=== PATIENT | male | born 1980 | race Caucasian/White ===

== ENCOUNTER 2021-12-10 00:55 | Emergency (ER) | payer MEDICAID, OTHER ==
[~2021-12-10] VITALS: Ht 162.6 cm; Wt 118.8 kg
[2021-12-10 01:01] VITALS: BP 206/127
--- NOTE | 2021-12-10 01:08 | NUR ---
Patient ambulated to bed 11.
[2021-12-10 02:14] LABS: BARBITURATE, URINE NEGATIVE ng/ml (NEG <=200); BENZODIAZEPINE, URINE NEGATIVE ng/mL (NEG <=200); CANNABINOID, URINE NEGATIVE ng/mL (NEG <=50); COCAINE, URINE NEGATIVE ng/mL (NEG <=300); OPIATE, URINE NEGATIVE ng/mL (NEG <=2000); PHENCYCLIDINE SCREEN,URINE NEGATIVE ng/mL (NEG <=25)
--- NOTE | 2021-12-10 02:16 | NUR ---
ALON PALMA AT [facility] FOR ASSESSMENT
[2021-12-10] MEDS ORDERED: diazePAM 5 MG TAB PO ONE (02:20)
[2021-12-10 02:34] LABS: BASOPHILS # (AUTO) 0.1 K/uL (0.00-0.22); BASOPHILS % (AUTO) 0.5 % (0.0-2.0); EOSINOPHILS # (AUTO) 0.2 K/uL (0-0.4); EOSINOPHILS % (AUTO) 1.5 % (0.0-4.0); HEMATOCRIT 50.2 % (36-52); LYMPHOCYTES # (AUTO) 3.2 K/uL (2.0-11.5); MEAN CORPUSCULAR HEMOGLOBIN 29 pg (27-31); MEAN CORPUSCULAR HGB CONC 34 g/dL (33-37); MEAN CORPUSCULAR VOLUME 85.8 fL (80-94); MONOCYTES # (AUTO) 0.6 K/uL (0.8-1.0); MONOCYTES % (AUTO) 5.5 % (1.7-9.3); NEUTROPHILS % (AUTO) 63.5 % (42.2-75.2); PLATELET COUNT (AUTO) 354 K/uL (140-450); RED BLOOD CELL COUNT(AUTO) 5.85 MIL/uL (4.20-6.10); RED CELL DISTRIBUTION WIDTH 13.4 % (11.6-13.7)
--- NOTE | 2021-12-10 02:35 | NUR ---
PT TAKING TO CT VIA WHEELCHAIR
[2021-12-10 03:02] LABS: ANION GAP 11.4 (8-16); CARBON DIOXIDE 29.8 mmol/L (21-32); CREATININE 1.4 mg/dL (0.6-1.3); POTASSIUM 3.2 mmol/L (3.5-5.1)
[2021-12-10 04:50] VITALS: BP 180/103
--- NOTE | 2021-12-10 04:50 | NUR ---
Patient discharged with v/s stable. Written and verbal after care instructions given and explained. Patient verbalized understanding. Ambulatory with steady gait. All questions addressed prior to discharge. Advised to follow up with PMD.
== END 2021-12-10 04:50 | disposition home or self-care (01) ==
LOC: MED 00:55
DX: R20.2 Paresthesia of skin (principal); F15.10 Other stimulant abuse, uncomplicated; Z71.6 Tobacco abuse counseling
CPT/HCPCS: 36415; 70450; 80048; 80305; 85025; 93005; 99285

== ENCOUNTER 2023-02-07 22:56 | Emergency (ER) | payer MEDICAID ==
--- NOTE | 2023-02-07 23:30 | NUR ---
PATIENT CALL TO TRIAGE , NO RESPONSE PATIENT LEFT WITHOUT BEING SEEN BY DR. SMITH. NO FURTHER CARE PROVIDED FOR PATIENT.
--- NOTE | 2023-02-07 23:40 | NUR ---
CALLED FOR THE SECOND TIME , NO RESPONSE
--- NOTE | 2023-02-07 23:55 | NUR ---
CALLED FOR THE THIRD TIME , NO RESPONSE
== END 2023-02-07 23:30 | disposition left against medical advice (07) ==
LOC: MED 22:56
DX: H57.10 Ocular pain, unspecified eye (principal); Z53.21 Procedure and treatment not carried out due to patient leaving prior to being seen by health care provider

== ENCOUNTER 2023-09-07 06:30 | Emergency (ER) | payer SELFPAY ==
[~2023-09-07] VITALS: Ht 162.6 cm; Wt 101.2 kg
[2023-09-07 07:01] VITALS: BP 195/110; PULSE 102; RESP 16; TEMP 98; O2SAT 99
[2023-09-07] MEDS ORDERED: IBUP-2213 PO (07:43)
[2023-09-07] MEDS ORDERED: AMOX-1230 PO (07:43)
[2023-09-07] MEDS ORDERED: AMLO5TAB PO (07:48)
[2023-09-07] MEDS ORDERED: hydrALAZINE 20 MG/ML VIAL IM ONE (07:50)
[2023-09-07 09:12] VITALS: BP 177/106; PULSE 89; RESP 16; TEMP 98; O2SAT 99
== END 2023-09-07 09:12 | disposition home or self-care (01) ==
LOC: MED 06:30
DX: H72.92 Unspecified perforation of tympanic membrane, left ear (principal); H66.92 Otitis media, unspecified, left ear; I10 Essential (primary) hypertension; Z79.899 Other long term (current) drug therapy
CPT/HCPCS: 96372; 99283; J0360